=== PATIENT | female | born 1990 | race Caucasian/White ===

== ENCOUNTER 2021-06-03 12:44 | Emergency (ER) | payer BC ==
[2021-06-03 13:31] VITALS: RESP 18
--- NOTE | 2021-06-03 14:38 | ED ---
General Adult HPI - General Chief complaint: Vaginal Bleeding Stated complaint: 6wks Preg/Bleeding Time Seen by Provider: 06/03/21 13:25 Source: patient Mode of arrival: ambulatory Limitations: no limitations - History of Present Illness Initial comments: 30-year-old female presents to the emergency Department with complaints of vaginal bleeding, onset last night. Patient states she is 7 weeks , LMP 04/15/2021. Patient states she has not been seen by OB so came here for further evaluation and treatment. Patient complains of moderate amount of dark red bleeding that she describes very similar to her normal period. Denies abdominal pain, but describes mild period-like cramping. Patient denies fever, chills, chest pain, shortness of breath, nausea, vomiting, constipation, diarrhea, and dysuria. - Related Data Home Medications Medication Instructions Recorded Confirmed No Known Home Medications 06/03/21 06/03/21 Allergies Allergy/AdvReac Type Severity Reaction Status Date / Time No Known Allergies Allergy Verified 06/03/21 13:48 Review of Systems ROS Statement: Those systems with pertinent positive or pertinent negative responses have been documented in the HPI. ROS Other: All systems not noted in ROS Statement are negative. Past Medical History Past Medical History: No Reported History History of Any Multi-Drug Resistant Organisms: None Reported Past Surgical History: No Surgical Hx Reported Past Psychological History: No Psychological Hx Reported Smoking Status: Never smoker Past Alcohol Use History: None Reported Past Drug Use History: None Reported General Exam Limitations: no limitations (Well-developed, well-nourished female in no acute distress. Initial temperature 98.6, pulse 68, respirations 18, pressure 118/68, pulse ox 100% on room air.) General appearance: alert, in no apparent distress ENT exam: Present: normal exam, normal oropharynx, mucous membranes moist Respiratory exam: Present: normal lung sounds bilaterally. Absent: respiratory distress, wheezes, rales, rhonchi, stridor Cardiovascular Exam: Present: regular rate, normal rhythm, normal heart sounds. Absent: systolic murmur, diastolic murmur, rubs, gallop, clicks GI/Abdominal exam: Present: soft, normal bowel sounds. Absent: distended, tenderness, guarding, rebound, rigid Speculum exam: Present: vaginal bleeding (moderate amount of dark red bleeding; no clots or tissue noted in vaginal vault) Back exam: Absent: CVA tenderness (R), CVA tenderness (L) Neurological exam: Present: alert, oriented X3, CN II-XII intact Psychiatric exam: Present: normal affect, normal mood Skin exam: Present: warm, dry, intact, normal color. Absent: rash Course Vital Signs 06/03/21 06/03/21 13:27 18:45 Temperature 98.6 F 98.5 F Pulse Rate 68 70 Respiratory 18 18 Rate Blood Pressure 118/68 120/70 O2 Sat by Pulse 100 99 Oximetry Medical Decision Making - Medical Decision Making 30-year-old female presents to the emergency department for evaluation of vaginal bleeding. Patient is . LMP 04/15/2021. Upon exam, patient is well-appearing. She is not tachycardic nor febrile. Denies feeling dizzy or lightheaded. No abdominal pain. Laboratory studies were obtained, beta hCG is 1189. Blood type is A+. Ultrasound shows no intrauterine . Findings were reviewed with patient. Stressed the importance of repeat beta hCG 48 hours, lab requisition was provided. Also discussed the remote possibility of ectopic and provided strict return instructions if patient develops pain. Patient will be discharged home to follow up with her OB provider on Sunday. Return parameters were discussed in detail. Patient verbalizes understanding and agrees with this plan. - Lab Data Result diagrams: 06/03/21 14:55 Lab Results 06/03/21 06/03/21 06/03/21 Range/Units 14:48 14:48 14:48 WBC (3.8-10.6) k/uL RBC (3.80-5.40) m/uL Hgb (11.4-16.0) gm/dL Hct (34.0-46.0) % MCV (80.0-100.0) fL MCH (25.0-35.0) pg MCHC (31.0-37.0) g/dL RDW (11.5-15.5) % Plt Count (150-450) k/uL MPV Neutrophils % % Lymphocytes % % Monocytes % % Eosinophils % % Basophils % % Neutrophils # (1.3-7.7) k/uL Lymphocytes # (1.0-4.8) k/uL Monocytes # (0-1.0) k/uL Eosinophils # (0-0.7) k/uL Basophils # (0-0.2) k/uL HCG, Quant 1189.4 mIU/mL Urine Color Yellow Urine Appearance Clear (Clear) Urine pH 6.0 (5.0-8.0) Ur Specific [place] 1.031 (1.001-1.035) Urine Protein Trace H (Negative) Urine Glucose (UA) Negative (Negative) Urine Ketones Trace H (Negative) Urine Blood Moderate H (Negative) Urine Nitrite Negative (Negative) Urine Bilirubin Negative (Negative) Urine Urobilinogen <2.0 (<2.0) mg/dL Ur Leukocyte Esterase Negative (Negative) Urine RBC 4 (0-5) /hpf Urine WBC 1 (0-5) /hpf Ur Squamous Epith Cells <1 (0-4) /hpf Urine Bacteria Rare H (None) /hpf Urine Mucus Occasional H (None) /hpf Urine HCG, Qual Detected (Not Detectd) Blood Type Blood Type Recheck Bld Type Recheck Status 06/03/21 06/03/21 Range/Units 14:55 14:55 WBC 6.9 (3.8-10.6) k/uL RBC 4.17 (3.80-5.40) m/uL Hgb 13.3 (11.4-16.0) gm/dL Hct 38.6 (34.0-46.0) % MCV 92.6 (80.0-100.0) fL MCH 32.0 (25.0-35.0) pg MCHC 34.5 (31.0-37.0) g/dL RDW 12.4 (11.5-15.5) % Plt Count 249 (150-450) k/uL MPV 8.9 Neutrophils % 63 % Lymphocytes % 28 % Monocytes % 5 % Eosinophils % 3 % Basophils % 0 % Neutrophils # 4.3 (1.3-7.7) k/uL Lymphocytes # 1.9 (1.0-4.8) k/uL Monocytes # 0.3 (0-1.0) k/uL Eosinophils # 0.2 (0-0.7) k/uL Basophils # 0.0 (0-0.2) k/uL HCG, Quant mIU/mL Urine Color Urine Appearance (Clear) Urine pH (5.0-8.0) Ur Specific [place] (1.001-1.035) Urine Protein (Negative) Urine Glucose (UA) (Negative) Urine Ketones (Negative) Urine Blood (Negative) Urine Nitrite (Negative) Urine Bilirubin (Negative) Urine Urobilinogen (<2.0) mg/dL Ur Leukocyte Esterase (Negative) Urine RBC (0-5) /hpf Urine WBC (0-5) /hpf Ur Squamous Epith Cells (0-4) /hpf Urine Bacteria (None) /hpf Urine Mucus (None) /hpf Urine HCG, Qual (Not Detectd) Blood Type A Positive Blood Type Recheck No Previous Record Bld Type Recheck Status [facility] ONLY - Radiology Data Radiology results: report reviewed, image reviewed Transvaginal ultrsound was obtained. Report was reviewed in its entirety. Impression per Dr. Pringle is normal-appearing pelvic ultrasound. No intrauterine identified. Consider spontaneous and ectopic . Disposition Clinical Impression: Threatened in early Disposition: HOME SELF-CARE Condition: Stable Instructions (If sedation given, give patient instructions): Threatened Miscarriage (ED) Additional Instructions: Repeat blood work drawn in 48 hours. Call your OB on Sunday morning to schedule follow-up appointment. Return to the emergency department with any lower abdominal or pelvic pain, or any other concerning symptoms. Is patient prescribed a controlled substance at d/c from ED?: No Referrals: Amy Ferguson MD [Primary Care Provider] - 1-2 days Nubia Carlisle DO [Doctor of Osteopathic Medicine] - 1-2 days Time of Disposition: 18:32
[2021-06-03 15:08] LABS: Appearance,Urine Clear (Clear); Bacteria,Urine Rare /hpf; Bilirubin,Urine Negative (Negative); Blood,Urine Moderate (Negative); Color,Urine Yellow; Glucose,Urine (UA) Negative (Negative); Ketones,Urine Trace (Negative); Leukocyte Esterase,Urine Negative (Negative); Mucus,Urine Occasional /hpf; Nitrite,Urine Negative (Negative); Protein,Urine Trace (Negative); RBC,Urine 4 /hpf (0-5); Specific Gravity,Urine 1.031 (1.001-1.035); Squamous Epithelial Cell,Urine <1 /hpf (0-4); Urobilinogen,Urine <2.0 mg/dL (<2.0); WBC,Urine 1 /hpf (0-5)
--- NOTE | 2021-06-03 16:29 | US ---
EXAMINATION TYPE: Transabdominal DATE OF EXAM: 06/03/2021 4:15 PM COMPARISON: NONE CLINICAL HISTORY: vaginal bleeding, cramping, LMP 04-15-21. EXAM PERFORMED: Transvaginal (TV) and Transabdominal (TA) EXAM MEASUREMENTS: GESTATIONAL AGE / DATING Physician Established: Not yet established Dates by LMP: 04/15/2021 (7 weeks/0 days) EDC: 01/20/2022 Dates by First Scan: No previous this is first scan Dates by Current Scan for: No IUP seen at this time MATERNAL ANATOMY Uterus: 8.8 x 4.6 x 6.5 cm Right Ovary: 2.8 x 1.6 x 2.9 cm Left Ovary: 3.9 x 2.1 x 2.2 cm Post CDS / Adnexa: wnl Presence of free fluid: none GESTATION / SURVEY No evidence of IUP. Date of LMP: 04/15/2021 Beta HcG (if available): 1189 Endo measures 1.3 cm. No evidence of IUP. Normal ovaries. No adnexal masses. IMPRESSION: 1. Normal-appearing pelvic ultrasound. No intrauterine identified. Consider spontaneous abo rtion and ectopic . Correlation with serial beta hCG recommended.
[2021-06-03 17:21] LABS: Basophils % (A) 0 %; Eosinophils # (A) 0.2 k/uL (0-0.7); Eosinophils % (A) 3 %; HCT 38.6 % (34.0-46.0); HGB 13.3 gm/dL (11.4-16.0); Lymphocytes # (A) 1.9 k/uL (1.0-4.8); Lymphocytes % (A) 28 %; MCHC 34.5 g/dL (31.0-37.0); MCV 92.6 fL (80.0-100.0); Mean Platelet Volume 8.9; Monocytes # (A) 0.3 k/uL (0-1.0); Monocytes % (A) 5 %; Neutrophils # (A) 4.3 k/uL (1.3-7.7); Neutrophils % (A) 63 %; Platelet Count 249 k/uL (150-450); RBC 4.17 m/uL (3.80-5.40); RDW 12.4 % (11.5-15.5); WBC 6.9 k/uL (3.8-10.6)
[2021-06-03 18:46] VITALS: BP 120/70; PULSE 70; TEMP 98.5
== END 2021-06-03 18:45 | disposition home or self-care (01) ==
LOC: EC 12:44
DX: O20.0 Threatened abortion (principal); Z3A.01 Less than 8 weeks gestation of pregnancy
CPT/HCPCS: 36415; 76801; 76817; 81001; 81025; 84702; 85025; 86900; 86901; 99284

== ENCOUNTER → 2021-06-05 | Outpatient (CLI) | payer BC | END | disposition home or self-care (01) | LOC: LABMAIN 17:07 | PROVIDERS: ATTEND Nurse Practitioner Family | DX: O26.851 Spotting complicating pregnancy, first trimester (principal); Z3A.00 Weeks of gestation of pregnancy not specified | CPT/HCPCS: 36415; 84702 ==

== ENCOUNTER → 2022-01-18 | Outpatient (CLI) | payer BC | END | disposition home or self-care (01) | LOC: LABWHC1 07:47 | PROVIDERS: ATTEND Obstetrics & Gynecology | DX: Z36.9 Encounter for antenatal screening, unspecified (principal) | CPT/HCPCS: 36415; 82950 ==

== ENCOUNTER 2022-03-30 19:00 | Inpatient (IN) | payer BC ==
[2022-03-30] MEDS ORDERED: LIDOCAINE 0.5% (PF) 5 MG/ML (50 ML SDV) SQ PRN (19:22)
[2022-03-30] MEDS ORDERED: TERBUTALINE 1 MG/ML VIAL SQ PRN (19:22)
[2022-03-30] MEDS ORDERED: METHYLERGONOVINE 0.2 MG/ML 1 ML AMP IM PRN (19:22)
[2022-03-30] MEDS ORDERED: CARBOPROST TROMETHAMINE 250 MCG/ML 1 ML AMP IM PRN (19:22)
[2022-03-30] MEDS ORDERED: OXYTOCIN 10 UNIT/ML 1 ML VIAL IM PRN (19:22)
[2022-03-30] MEDS ORDERED: LACTATED RINGERS 1,000 ML IV SCH (19:30)
[2022-03-30] MEDS ORDERED: OXYTOCIN 30 UNITS/500 ML NS 30 UNIT in SALINE 1 500ML.BAG IV SCH ×2 (19:30→22:00)
[2022-03-30 19:44] LABS: Basophils % (A) 0 %; Eosinophils # (A) 0.1 k/uL (0-0.7); Eosinophils % (A) 1 %; HGB 11.7 gm/dL (11.4-16.0); Lymphocytes % (A) 22 %; MCHC 32.5 g/dL (31.0-37.0); MCV 95.4 fL (80.0-100.0); Monocytes # (A) 0.3 k/uL (0-1.0); Monocytes % (A) 4 %; Neutrophils # (A) 6.2 k/uL (1.3-7.7); Neutrophils % (A) 71 %; Platelet Count 245 k/uL (150-450); RBC 3.77 m/uL (3.80-5.40); RDW 13.3 % (11.5-15.5); WBC 8.7 k/uL (3.8-10.6)
--- NOTE | 2022-03-30 19:49 | P.HPOB ---
History of Present Illness H&P Date: 03/30/22 Chief Complaint: IUP at 39 3/7 weeks, labor this is a 31-year-old 011 at 39 weeks of gestation that presents to labor and delivery with complaints of contractions and possible rupture of membranes. Rupture of membranes was negative, patient was noted to be 7 cm. Patient states she's been chavez irregularly. Patient was seen in the office yesterday was noted to be 5 cm dilated. Patient has noted good movement denies vaginal bleeding. Patient has been receiving care throughout the but was a transfer to [facility] at 26 weeks. Patient has a prior history of a vaginal breech delivery. Patient states she labored at home and when she presented was completely dilated with a footling breech presentation. Patient denies concerns with that delivery. On bloodwork this patient has a blood type of A+, rubella status nonimmune, hepatitis B surface antigen negative, HIV negative, gonorrhea and chlamydia cultures are negative she did pass her 1 hour gestational diabetes screen she received her T dap injection on 72, group beta strep culture was negative on 03/13. Past Medical History Past Medical History: No Reported History History of Any Multi-Drug Resistant Organisms: None Reported Past Surgical History: No Surgical Hx Reported Past Psychological History: No Psychological Hx Reported Smoking Status: Never smoker Past Alcohol Use History: None Reported Past Drug Use History: None Reported Medications and Allergies Home Medications Medication Instructions Recorded Confirmed Type Vit No.179/Iron/Folic 1 tab PO DAILY 03/30/22 03/30/22 History [ Tablet] Allergies Allergy/AdvReac Type Severity Reaction Status Date / Time nickel Allergy Intermediate Itching Verified 03/30/22 19:20 Exam Osteopathic Statement: *. No significant issues noted on an osteopathic structural exam other than those noted in the History and Physical/Consult. 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 Results Result Diagrams: 03/30/22 19:11 Assessment and Plan (1) Term Current Visit: Yes Status: Acute Code(s): Z34.90 - ENCNTR FOR SUPRVSN OF NORMAL , UNSP, UNSP TRIMESTER SNOMED Code(s): 68141899 (2) Active labor Current Visit: Yes Status: Acute Code(s): AHO2440 - SNOMED Code(s): 223716737 Plan: 31-year-old 011 at 39 3/7 weeks gestation that presents with complaints of contractions. Patient was noted be 7+ centimeters dilated on admission. Patient underwent amniotomy clear fluid was obtained. Patient declines epidural. Anticipate spontaneous vaginal delivery.
[2022-03-30] MEDS ORDERED: HYDROCORTISONE 2.5% RECTAL CREAM 30 GM TUBE RECTAL PRN (21:51)
[2022-03-30] MEDS ORDERED: LANOLIN CREAM 5 GM TUBE TOPICAL PRN (21:51)
[2022-03-30] MEDS ORDERED: diphenhydrAMINE 50 MG CAP PO PRN (21:51)
[2022-03-30] MEDS ORDERED: ZOLPIDEM 5 MG TAB PO PRN (21:51)
[2022-03-30] MEDS ORDERED: diphenhydrAMINE 25 MG CAP PO PRN (21:51)
[2022-03-30] MEDS ORDERED: BENZOCAINE/MENTHOL SPRAY 1 GM/SPRAY AEROSOL TOPICAL PRN (21:51)
[2022-03-30] MEDS ORDERED: ACETAMINOPHEN TAB 325 MG TAB PO PRN (21:51)
[2022-03-30] MEDS ORDERED: diphenhydrAMINE 50 MG/ML 1 ML VIAL IVP PRN ×2 (21:51)
[2022-03-30] MEDS ORDERED: SIMETHICONE 80 MG CHEWABLE PO PRN (21:51)
--- NOTE | 2022-03-30 21:55 | P.PROBDLV ---
Vaginal Delivery Note - . Vaginal Delivery Note: this is a 31-year-old 011 that presented to labor and delivery at 39-3/7 weeks in active labor. Patient was admitted to labor and delivery and amniotomy was performed. Clear fluid was obtained. Patient progressed through labor, progressing to complete dilation. Patient was placed in the modified lithotomy position with good maternal effort brought the baby down to a presentation, with further pushing the anterior/posterior shoulder were delivered followed by the infant's body. The was then placed on the maternal abdomen, 1980s cry was appreciated. After two-minute delayed the umbilical cord was doubly clamped and cut. The placenta was then delivered spontaneously intact with a three-vessel cord being noted. the uterus was noted to be firm and below the umbilicus. On inspection of the patient's vaginal vault a second degree midline vaginal laceration was appreciated, after instillation of lidocaine this was repaired in usual fashion with 3-0 Rapide. Hemostasis was appreciated after. Estimated blood loss 100 mL Patient and tolerated delivery well and are resting comfortably All counts were noted be correct 2 at the end of the delivery.
[2022-03-30] MEDS: IBUPROFEN 600 MG TAB PO SCH (23:37)
[2022-03-31] MEDS: IBUPROFEN 600 MG TAB PO SCH ×4 (05:01→20:25)
[2022-03-31 08:20] VITALS: RESP 16
--- NOTE | 2022-03-31 08:52 | P.DS ---
Providers Date of admission: 03/30/22 19:00 Expected date of discharge: 03/31/22 Attending physician: Kat Crowell Primary care physician: Stated None Hospital Course: This is a 31-year-old female 3 para 111 EDC 04/03/2022 at 39-3/7 weeks' gestation who came in through the night in active spontaneous labor. was unremarkable, group B strep cultures negative, blood type A positive. Rubella status nonimmune. Please see dictated history and physical for details. Artificial amniorrhexis revealed clear fluid. Patient went on to deliver rather quickly a liveborn male infant with scores of 9 and 9 at one and 5 minutes respectively. Infant weighed 7 lbs. 7 oz. or 3375 g. The was a small second- degree perineal laceration easily repaired. Please see dictated delivery note for details. This morning the patient is doing well. She is voiding, ambulating, passing flatus without difficulty. No signs are stable and she is afebrile. Perineal body is clean and dry, intact. Minimal lochia rubra. Breast-feeding is going well. Patient is requesting discharge home and is judged to be in very good condition for discharge. She will follow-up with me in the office in 6 weeks. I have reminded her no intercourse, tampons or douching. She will use [id number] Advil or Aleve, or Motrin as needed for pain. She will call with any fevers shakes or chills, foul smelling or copious lochia. She will call with any fevers shakes or chills, with any pain not alleviated by [id number] products, or indeed with any concerns. Circumcision has been performed and will follow-up with cosmetic account coordinator as per recommendations. Assessment: Doing well first day Patient Condition at Discharge: Good Plan - Discharge Summary Discharge Rx Participant: No New Discharge Prescriptions: No Action Vit No.179/Iron/Folic [ Tablet] 1 tab PO DAILY Discharge Medication List Vit No.179/Iron/Folic [ Tablet] 1 tab PO DAILY 03/30/22 [History] Follow up Appointment(s)/Referral(s): Kat Crowell MD [STAFF PHYSICIAN] - 6 Weeks Discharge Disposition: HOME SELF-CARE
[2022-03-31] MEDS ORDERED: PRENATAL VIT-IRON-FOLIC ACID 1 EACH TABLET PO SCH (09:00)
[2022-03-31] MEDS: SENNOSIDES-DOCUSATE SODIUM 1 EACH TAB PO SCH ×2 (13:06→20:25)
[2022-03-31 20:21] VITALS: BP 109/72; PULSE 74; TEMP 97.9
== END 2022-03-31 23:10 | disposition home or self-care (01) | DRG 807 ==
LOC: 4FBP 19:00
PROVIDERS: ADMIT Obstetrics & Gynecology Obstetrics; ATTEND Obstetrics & Gynecology
PROC: 0HQ9XZZ Repair Perineum Skin, External Approach (ICD-10-PCS; principal; 2022-03-30)
PROC: 10907ZC Drainage of Amniotic Fluid, Therapeutic from Products of Conception, Via Natural or Artificial Opening (ICD-10-PCS; principal; 2022-03-30)
PROC: 10E0XZZ Delivery of Products of Conception, External Approach (ICD-10-PCS; principal; 2022-03-30)
DX: O32.8XX0 Maternal care for other malpresentation of fetus, not applicable or unspecified (principal); Z37.0 Single live birth; O70.1 Second degree perineal laceration during delivery; Z3A.39 39 weeks gestation of pregnancy; Z28.310 Unvaccinated for COVID-19; Z28.21 Immunization not carried out because of patient refusal
CPT/HCPCS: 85025; 86850; 86900; 86901